=== PATIENT | female | born 1990 | race Two or more races ===

== ENCOUNTER 2017-11-15 19:46 | Emergency (ER) | payer SELFPAY ==
[2017-11-15 20:12] VITALS: BP 99/57; PULSE 70; RESP 18; TEMP 97.6; O2SAT 100
--- NOTE | 2017-11-15 21:27 | ED PDOC ---
HPI: Psych/Substance Abuse Time Seen by Provider: 11/15/17 20:14 Chief Complaint (Nursing): Alcohol Ingestion History Per: Patient, Other (Claudia (pt's friend)) Additional Complaint(s): Pt. brought in by her friend Claudia as she was found vomiting. States that pt. had "3 shots of fireball." Further states that she is not a regular drinker. Pt. does admit to drinking alcohol. Denies abd pain, head injury, hematemesis, diarrhea. Past Medical History Reviewed: Historical Data, Nursing Documentation, Vital Signs Vital Signs: Last Vital Signs Temp 97.6 F 11/15/17 20:06 Pulse 70 11/15/17 20:06 Resp 18 11/15/17 20:06 BP 99/57 L 11/15/17 20:06 Pulse Ox 100 11/15/17 20:06 - Surgical History Other surgeries: No previous abdominal surgeries - Family History Family History: States: No Known Family Hx - Allergies Allergies/Adverse Reactions: Allergies Allergy/AdvReac Type Severity Reaction Status Date / Time No Known Allergies Allergy Verified 11/15/17 20:40 Review of Systems ROS Statement: Except As Marked, All Systems Reviewed And Found Negative Gastrointestinal: Positive for: Vomiting Physical Exam - Physical Exam Appears: Positive for: Well, Non-toxic, No Acute Distress Head Exam: Positive for: ATRAUMATIC, NORMAL INSPECTION, NORMOCEPHALIC Skin: Positive for: Normal Color, Warm. Negative for: Rash Eye Exam: Positive for: Normal appearance, EOMI, PERRL. Negative for: Periorbital swelling, Periorbital tenderness, Conjunctival injection ENT: Positive for: Normal ENT Inspection Neck: Positive for: Normal, Painless ROM Cardiovascular/Chest: Positive for: Regular Rate, Rhythm Respiratory: Positive for: Normal Breath Sounds. Negative for: Respiratory Distress Gastrointestinal/Abdominal: Positive for: Normal Exam, Soft. Negative for: Tenderness Back: Positive for: Normal Inspection. Negative for: L CVA Tenderness, R CVA Tenderness Extremity: Positive for: Normal ROM Neurologic/Psych: Positive for: Alert, Oriented, Gait (steady, unassisted), Other (slurred speech; AOB). Negative for: Aphasia, Facial Droop - ECG O2 Sat by Pulse Oximetry: 100 - Progress ED Course And Treament: Zofran 4mg ODT ordered. Pt. ate cookie and drank water without any vomiting. Pt. will be discharged under Claudia's care. Disposition - Clinical Impression Clinical Impression: Alcohol intoxication - Patient ED Disposition Is Patient to be Admitted: No - Disposition Disposition: Routine/Home Disposition Time: 21:15 Condition: IMPROVED Instructions: Alcohol Abuse and Alcoholism (DC) Forms: [employer] (Tunisian) Print Language: GERMAN
== END 2017-11-16 01:40 | disposition home or self-care (01) ==
LOC: H.ER 19:46
DX: F10.129 Alcohol abuse with intoxication, unspecified (principal)